=== PATIENT | male | born 1950 | race Caucasian/White ===

== ENCOUNTER → 2023-06-28 09:21 | Outpatient (BNVA) | payer MEDICARE, SELFPAY | PROVIDERS: Family Provider Nurse Practitioner; PCP Family Medicine; Referring Provider Internal Medicine Hematology & Oncology; Visit Provider Psychiatry & Neurology Neurology | DX: G62.9 Polyneuropathy, unspecified (principal); Z98.1 Arthrodesis status; C61 Malignant neoplasm of prostate | CPT/HCPCS: 99203 ==